=== PATIENT | female | born 1965 | race Caucasian/White ===

== ENCOUNTER 2020-12-15 07:28 | Day surgery (SDC) | payer OTHER ==
[~2020-12-15] VITALS: Ht 167.6 cm; Wt 62.6 kg
[2020-12-15] MEDS ORDERED: fentaNYL citrate 0.05 MG/ML VIAL ONE (10:01)
[2020-12-15] MEDS ORDERED: LIDOCAINE 2% 100 MG/5 ML UJET TP ONE ×2 (10:01→11:10)
[2020-12-15] MEDS ORDERED: fentaNYL citrate 0.05 MG/ML VIAL IVP ONE (10:25)
== END 2020-12-15 11:45 | disposition home or self-care (01) ==
LOC: MMU 07:28 → MDS 07:28
PROVIDERS: ATTEND Internal Medicine Gastroenterology
DX: K64.8 Other hemorrhoids (principal); K62.5 Hemorrhage of anus and rectum; K62.89 Other specified diseases of anus and rectum; Z79.899 Other long term (current) drug therapy
CPT/HCPCS: 45350; J3010

== ENCOUNTER 2023-06-18 11:33 | Emergency (ER) | payer OTHER ==
[~2023-06-18] VITALS: Ht 160 cm; Wt 63.5 kg
[2023-06-18 11:51] VITALS: BP 117/64; PULSE 93; RESP 18; TEMP 98.6; O2SAT 96
[2023-06-19] MEDS ORDERED: LOPE1TAB14 PO (20:35)
[2023-06-19] MEDS ORDERED: CIPR500T4 PO (20:35)
[2023-06-19] MEDS ORDERED: BISM262C53 PO (20:35)
== END 2023-06-18 15:11 | disposition left against medical advice (07) ==
LOC: MED 11:33
DX: R10.9 Unspecified abdominal pain (principal); R11.2 Nausea with vomiting, unspecified; Z53.21 Procedure and treatment not carried out due to patient leaving prior to being seen by health care provider
CPT/HCPCS: 99281

== ENCOUNTER 2023-06-19 18:46 | Emergency (ER) | payer OTHER ==
[~2023-06-19] VITALS: Ht 157.5 cm; Wt 62.1 kg
[2023-06-19 19:07] VITALS: BP 113/85; PULSE 89; RESP 20; TEMP 96.8; O2SAT 100
[2023-06-19] MEDS ORDERED: BISMUTH SUBSALICYLATE 15 ML UDBTL PO ONE (20:05)
[2023-06-19] MEDS ORDERED: ONDANSETRON 4 MG ODT PO ONE (20:05)
[2023-06-19] MEDS ORDERED: DICYCLOMINE HCL LIQUID 20 MG, ALUMINUM HYD/MAG/SIMETHICONE 30 ML, LIDOCAINE VISCOUS 2% ... PO ONE ×3 (20:05)
[2023-06-19] MEDS ORDERED: ALUMINUM HYD/MAG/SIMETHICONE 30 ML UDC ONE ×2 (20:14→20:15)
[2023-06-19] MEDS ORDERED: DICYCLOMINE HCL LIQUID 10 MG/5 ML UDC ONE ×2 (20:15)
[2023-06-19 20:17] LABS: BASOPHILS % (AUTO) 0.2 % (0.0-2.0); EOSINOPHILS # (AUTO) 0.1 K/uL (0-0.4); EOSINOPHILS % (AUTO) 1.9 % (0.0-4.0); HEMATOCRIT 38.1 % (36-48); HEMOGLOBIN 13.1 g/dL (12.0-16.0); LYMPHOCYTES # (AUTO) 0.7 K/uL (2.5-16.5); LYMPHOCYTES % (AUTO) 15.5 % (20.5-51.1); MEAN CORPUSCULAR HEMOGLOBIN 29 pg (27-31); MEAN CORPUSCULAR HGB CONC 35 g/dL (33-37); MEAN CORPUSCULAR VOLUME 84.7 fL (80-94); MONOCYTES # (AUTO) 0.3 K/uL (0.8-1.0); MONOCYTES % (AUTO) 7.5 % (1.7-9.3); NEUTROPHILS # (AUTO) 3.2 K/uL (1.8-7.7); NEUTROPHILS % (AUTO) 74.9 % (42.2-75.2); PLATELET COUNT (AUTO) 179 K/uL (140-450); RED BLOOD CELL COUNT(AUTO) 4.49 MIL/uL (4.20-5.40); RED CELL DISTRIBUTION WIDTH 13.4 % (11.6-13.7); WHITE BLOOD COUNT (AUTO) 4.3 K/uL (4.8-10.8)
[2023-06-19 20:33] LABS: ANION GAP 9.7 (8-16); CALCIUM 9.3 mg/dL (8.5-10.1); CARBON DIOXIDE 29.6 mmol/L (21-32); CREATININE 0.7 mg/dL (0.6-1.3); POTASSIUM 3.3 mmol/L (3.5-5.1)
[2023-06-19] MEDS ORDERED: LOPE1TAB14 PO (20:35)
[2023-06-19] MEDS ORDERED: CIPR500T4 PO (20:35)
[2023-06-19] MEDS ORDERED: BISM262C53 PO (20:35)
[2023-06-19] MEDS ORDERED: POTASSIUM CHLORIDE 10 MEQ TABER PO ONE (20:55)
[2023-06-19 21:03] LABS: ALBUMIN 3.7 g/dL (3.4-5.0); BILIRUBIN,DIRECT 0.1 mg/dL (0.0-0.3); TOTAL BILIRUBIN 0.5 mg/dL (0.0-1.0); TOTAL PROTEIN, SERUM 7.4 g/dL (6.4-8.2)
[2023-06-19 21:52] VITALS: BP 113/85; PULSE 89; RESP 20; TEMP 96.8; O2SAT 100
== END 2023-06-19 21:52 | disposition home or self-care (01) ==
LOC: MED 18:46
DX: A05.9 Bacterial foodborne intoxication, unspecified (principal); R11.2 Nausea with vomiting, unspecified; R19.7 Diarrhea, unspecified; E87.6 Hypokalemia; Z79.899 Other long term (current) drug therapy
CPT/HCPCS: 36415; 80048; 80076; 83690; 85025; 99283; Q0162